=== PATIENT | female | born 1995 | race Caucasian/White ===

== ENCOUNTER 2022-02-04 14:31 | Inpatient (IN) | payer OTHER, SELFPAY ==
--- NOTE | ~2022-02-04 | CT_ITS ---
EXAMINATION: CT ABDOMEN AND PELVIS WITHOUT CONTRAST CLINICAL INFORMATION: Bilateral flank pain and difficulty voiding. COMPARISON: No similar priors. TECHNIQUE: Multidetector volumetric imaging was performed from the superior aspect of the liver through the pubic symphysis. Sagittal and coronal reformatted images were obtained on the technologist's workstation. This CT examination was performed using dose optimization techniques as appropriate, variously including the following: *Automated exposure control. *Adjustment of mA and/or kV according to patient size (this includes techniques or standardized protocols for targeted exams where dose is matched to indication/reason for exam; i.e. extremities or head). *Use of iterative reconstruction technique. DLP: 606 mGy-cm FINDINGS: LUNG BASES: The visualized lung bases are unremarkable. LIVER, GALLBLADDER, AND BILIARY TREE: Hepatic steatosis. The liver is otherwise normal in size and shape without discrete focal abnormalities except for a peripherally located calcification in the right hepatic lobe (3:10). There is no biliary duct dilatation. There is a normal appearance of the gallbladder. PANCREAS: Unremarkable. SPLEEN: Unremarkable. ADRENAL GLANDS: Unremarkable. KIDNEYS AND URETERS: There are at least 6 renal calculi in the right kidney, largest being a group of 2 closely apposed calculi in the lower pole measuring up to 0.3 cm (5:54) and a 0.3 cm calculus in the upper pole (5:55). No left nephrolithiasis. No hydronephrosis or hydroureter. No perinephric fat stranding. BLADDER: Unremarkable. GASTROINTESTINAL TRACT: There is a significantly dilated appendix measuring up to approximately 1.7 cm in maximum diameter with at least 2 subcentimeter calcified fecaliths and significant surrounding fat stranding. In close proximity to this abnormal appendix, there is a rounded water density structure measuring 4.8 x 4.7 cm (3:69) which appears to be in relation to the right ovary and likely represents an ovarian cyst. No free air is identified. The stomach and the small bowel are nondilated. No pericolonic inflammatory changes or evidence of bowel obstruction. ABDOMINAL WALL: No significant hernia is appreciated. LYMPH NODES: Enlarged right lower quadrant mesenteric lymph nodes, likely reactive in the setting of appendicitis. VASCULAR: Abdominal aorta is of normal diameter. PELVIC VISCERA: As above, there is a large up to 4.8 cm water density cyst in the right ovary, almost certainly benign. OSSEOUS STRUCTURES: No acute or aggressive-appearing osseous abnormalities. CT/CT abdomen pelvis wo con IMPRESSION: 1. Markedly distended appendix with appendicoliths and significant regional fat stranding, most consistent with acute appendicitis. Given the degree of inflammatory changes and free fluid an early contained rupture is difficult to be entirely excluded. However, no free air is identified. 2. Hepatic steatosis. 3. Non-obstructive right-sided renal calculi.
[2022-02-04 14:49] VITALS: BP 142/85; PULSE 100; RESP 18; TEMP 36.9; O2SAT 100; BMI 32.7
[2022-02-04 16:40] LABS: Anion Gap 15 (12-20); Blood Urea Nitrogen 7 mg/dL (9-16); Calcium 9.4 mg/dL (8.4-10.2); Carbon Dioxide 20 mmol/L (22-29); Chloride 106 mmol/L (96-108); Creatinine Clr Calc Pharmacy 132.6; Estimated Glomerular Filt Rate > 60; Glucose Random 76 mg/dL (60-115); Potassium 3.9 mmol/L (3.3-5.1); Sodium 137 mmol/L (135-145)
[2022-02-04 16:46] LABS: Appearance Urine CLEAR; Color Urine YELLOW; Glucose Urine UA NEG (NEG); Leukocyte Esterase Urine NEG (NEG); Nitrite Urine NEG (NEG); PH 6.5 (5.0-8.0); UACC Culture Trigger NO; Urine Blood TRACE (NEG); Urine Ketones NEG (NEG); Urine Protein NEG (NEG-TRACE)
[2022-02-04 16:48] LABS: UPreg QC Valid YES; Urine Pregnancy NEGATIVE (NEGATIVE)
[2022-02-04 16:54] LABS: Bacteria Urine TRACE /LPF; RBC Urine 0-2 /HPF (0); Squamous Epithelial Cell Urine 1+ /LPF; WBC Urine 0 /HPF (0-4)
--- NOTE | 2022-02-04 18:30 | ED.FEMALEGU ---
HPI - Female Genitourinary General Chief complaint: Urogenital-Female Stated complaint: Back pain/Trouble urinating Time Seen by Provider: 02/04/22 15:03 Source: patient Mode of arrival: ambulatory Limitations: no limitations History of Present Illness HPI Narrative: c/o low abdominal pain/back pain and dysuria MD elicited complaint: other (abdominal pain back pain dysuria) Pertinent past history: other (prior UTI) Onset (ago): day(s) (yesterday AM) Location of symptoms: low back and other (lower abdomen) Severity: moderate Consistency: constant Vaginal discharge: none Vaginal bleeding: none Urinary symptoms: Dysuria Exacerbating factors: none Relieving factors: none Associated symptoms: abdominal pain Treatment prior to arrival: none Related Data Home Medications Medication Instructions Recorded Confirmed No Known Home Meds 02/04/22 02/04/22 Allergies Allergy/AdvReac Type Severity Reaction Status Date / Time No Known Allergies Allergy Unverified 08/06/20 18:47 Review of Systems Review of Systems: Constitutional : No Weight loss, No Fever, No Chills ENT/Mouth : No sore throat, No Rhinorrhea Eyes: No Swelling, No Redness Cardiovascular : No Chest Pain, No SOB, NoEdema Respiratory : No Cough, No Sputum, No Wheezing Gastrointestinal : no Nausea, no Vomiting, no Diarrhea, positive abdominal Pain, No Hematochezia, No Melena Genitourinary : pos Dysuria, No Urinary Frequency, No Hematuria, No Urgency Musculoskeletal : No joint pain, No Myalgias, No Joint Swelling Skin : No Skin Lesions, No rash Neuro : No Weakness, No Numbness, No Dizziness, No Headache Psych : No Anxiety/Panic, No Depression Heme/Lymph: No Bruising, No Lymphadenopathy Endocrine : No Polyuria, No Polydipsia All other systems reviewed and are negative. [facility] Past Medical History Medical History UTI (urinary tract infection) Social History Social History (Updated 02/04/22 @ 19:24 by Melissa Hoyt DO) Patient Tobacco Use Status: Never used Tobacco Advance Directives: No Advance Directives Information Provided: No Physical Exam Vital Signs: Vital Signs: Last Vital Signs Temp 98.6 F 02/04/22 19:14 Pulse 96 02/04/22 20:35 Resp 14 02/04/22 20:35 BP 106/66 02/04/22 20:35 Pulse Ox 100 02/04/22 20:35 BMI result Body Mass Index 32.7 Appearance: Alert. Oriented X3. anxious mild acute distress. Eyes: Pupils equal, round and reactive to light. ENT: Pharynx normal. Neck: Normal inspection. Neck supple. CVS: Normal heart rate and rhythm. Pulses normal. Respiratory: No respiratory distress. Breath sounds normal. Abdomen: Soft but moderate ttp in RLQ with no rebound but + guarding, no CVA ttp Skin: Skin warm and dry. Normal skin color. Normal skin turgor. Extremities: No lower extremity edema. No calf ttp Neuro: Oriented X 3. No motor deficit. No sensory deficit. Course Course Course Narrative: WBC count 18k, CT scan dilated appendix with appendicolith and stranding, IV zosyn ordered, at this time infection suspected 801pm will notify surgery message sent to Dr. Krishna 808pm - plan to admit the patient overnight and surgery in AM MDM - Female Genitourinary MDM Narrative Medical decision making narrative: 27 yo female with no sig PMH other than occasional UTIs comes in with low abdominal pain back pain and dysuria thought she had a UTI - has normal UA and her exam is quite positive for RLQ ttp ?appendicitis. CT scan ordered, IVF, labs, IV toradol for pain. Dispo per results and findings. Differential Diagnosis Differential diagnosis: Likely urinary tract infection Lab Data Result diagrams: 02/04/22 19:45 02/04/22 16:19 Labs: Lab Results 02/04/22 02/04/22 02/04/22 Range/Units 16:19 16:28 16:28 WBC (4.8-10.8) X10*3/uL RBC (4.20-5.50) X10*6/uL Hgb (12.0-16.0) g/dl Hct (37.0-47.0) % MCV (80.0-98.0) fL MCH (27.0-33.0) pg MCHC (31.0-35.0) g/dl RDW (11.0-16.0) % Plt Count MPV (9.4-12.3) fL Immature Gran % (Auto) (0.0-0.4) % Neut % (Auto) (45-73) % Lymph % (Auto) (20-40) % [place] % (Auto) (2-11) % Eos % (Auto) (0-4) % Baso % (Auto) (0-2) % Lymph # (Auto) (1.2-4.9) X10*3/uL [place] # (Auto) (0.1-1.2) X10*3/uL Eos # (Auto) (0.0-0.4) X10*3/uL Baso # (Auto) (0.0-0.2) X10*3/uL Abs Immat Gran (auto) (0.00-0.03) X10*3/uL Absolute Neuts (auto) (2.0-8.3) x10*3/uL Absolute Nucleated RBC (0.0-0.012) X10*3/uL Nucleated RBC % (auto) (0.0-0.2) /100WBC Smear Tech's Comments PT (9.9-13.0) SEC INR (0.9-1.1) Sodium 137 (135-145) mmol/L Potassium 3.9 (3.3-5.1) mmol/L Chloride 106 (96-108) mmol/L Carbon Dioxide 20 L (22-29) mmol/L Anion Gap 15 (12-20) BUN 7 L (9-16) mg/dL Creatinine 0.69 (0.5-1.4) mg/dL Estim Creat Clear Calc 132.6 Estimated GFR > 60 Random Glucose 76 (60-115) mg/dL Lactic Acid (0.5-2.0) mmol/L Calcium 9.4 (8.4-10.2) mg/dL Urine Color YELLOW Urine Appearance CLEAR Urine pH 6.5 (5.0-8.0) Ur Specific [place] 1.010 (1.005-1.025) Urine Protein NEG (NEG-TRACE) MG/DL Urine Glucose (UA) NEG (NEG) MG/DL Urine Ketones NEG (NEG) MG/DL Urine Blood TRACE (NEG) Urine Nitrite NEG (NEG) Ur Leukocyte Esterase NEG (NEG) Urine RBC 0-2 (0) /HPF Urine WBC 0 (0-4) /HPF Ur Squamous Epith Cells 1+ /LPF Urine Bacteria TRACE /LPF Urine Test NEGATIVE (NEGATIVE) COVID-19 (JOEY) (Negative) COVID-19 Clin Com 02/04/22 02/04/22 02/04/22 Range/Units 19:35 19:45 20:18 WBC 18.1 H (4.8-10.8) X10*3/uL RBC 4.22 (4.20-5.50) X10*6/uL Hgb 13.0 (12.0-16.0) g/dl Hct 39.2 (37.0-47.0) % MCV 92.9 (80.0-98.0) fL MCH 30.8 (27.0-33.0) pg MCHC 33.2 (31.0-35.0) g/dl RDW 12.3 (11.0-16.0) % Plt Count TNP MPV 12.3 (9.4-12.3) fL Immature Gran % (Auto) 0.3 (0.0-0.4) % Neut % (Auto) 80.7 H (45-73) % Lymph % (Auto) 13.0 L (20-40) % [place] % (Auto) 5.2 (2-11) % Eos % (Auto) 0.5 (0-4) % Baso % (Auto) 0.3 (0-2) % Lymph # (Auto) 2.4 (1.2-4.9) X10*3/uL [place] # (Auto) 1.0 (0.1-1.2) X10*3/uL Eos # (Auto) 0.1 (0.0-0.4) X10*3/uL Baso # (Auto) 0.1 (0.0-0.2) X10*3/uL Abs Immat Gran (auto) 0.05 H (0.00-0.03) X10*3/uL Absolute Neuts (auto) 14.6 H (2.0-8.3) x10*3/uL Absolute Nucleated RBC 0.000 (0.0-0.012) X10*3/uL Nucleated RBC % (auto) 0.0 (0.0-0.2) /100WBC Smear Tech's Comments VERIFIED PT 12.0 (9.9-13.0) SEC INR 1.1 (0.9-1.1) Sodium (135-145) mmol/L Potassium (3.3-5.1) mmol/L Chloride (96-108) mmol/L Carbon Dioxide (22-29) mmol/L Anion Gap (12-20) BUN (9-16) mg/dL Creatinine (0.5-1.4) mg/dL Estim Creat Clear Calc Estimated GFR Random Glucose (60-115) mg/dL Lactic Acid (0.5-2.0) mmol/L Calcium (8.4-10.2) mg/dL Urine Color Urine Appearance Urine pH (5.0-8.0) Ur Specific [place] (1.005-1.025) Urine Protein (NEG-TRACE) MG/DL Urine Glucose (UA) (NEG) MG/DL Urine Ketones (NEG) MG/DL Urine Blood (NEG) Urine Nitrite (NEG) Ur Leukocyte Esterase (NEG) Urine RBC (0) /HPF Urine WBC (0-4) /HPF Ur Squamous Epith Cells /LPF Urine Bacteria /LPF Urine Test (NEGATIVE) COVID-19 (JOEY) Negative (Negative) COVID-19 Clin Com See Note 02/04/22 Range/Units 20:18 WBC (4.8-10.8) X10*3/uL RBC (4.20-5.50) X10*6/uL Hgb (12.0-16.0) g/dl Hct (37.0-47.0) % MCV (80.0-98.0) fL MCH (27.0-33.0) pg MCHC (31.0-35.0) g/dl RDW (11.0-16.0) % Plt Count MPV (9.4-12.3) fL Immature Gran % (Auto) (0.0-0.4) % Neut % (Auto) (45-73) % Lymph % (Auto) (20-40) % [place] % (Auto) (2-11) % Eos % (Auto) (0-4) % Baso % (Auto) (0-2) % Lymph # (Auto) (1.2-4.9) X10*3/uL [place] # (Auto) (0.1-1.2) X10*3/uL Eos # (Auto) (0.0-0.4) X10*3/uL Baso # (Auto) (0.0-0.2) X10*3/uL Abs Immat Gran (auto) (0.00-0.03) X10*3/uL Absolute Neuts (auto) (2.0-8.3) x10*3/uL Absolute Nucleated RBC (0.0-0.012) X10*3/uL Nucleated RBC % (auto) (0.0-0.2) /100WBC Smear Tech's Comments PT (9.9-13.0) SEC INR (0.9-1.1) Sodium (135-145) mmol/L Potassium (3.3-5.1) mmol/L Chloride (96-108) mmol/L Carbon Dioxide (22-29) mmol/L Anion Gap (12-20) BUN (9-16) mg/dL Creatinine (0.5-1.4) mg/dL Estim Creat Clear Calc Estimated GFR Random Glucose (60-115) mg/dL Lactic Acid 0.9 (0.5-2.0) mmol/L Calcium (8.4-10.2) mg/dL Urine Color Urine Appearance Urine pH (5.0-8.0) Ur Specific [place] (1.005-1.025) Urine Protein (NEG-TRACE) MG/DL Urine Glucose (UA) (NEG) MG/DL Urine Ketones (NEG) MG/DL Urine Blood (NEG) Urine Nitrite (NEG) Ur Leukocyte Esterase (NEG) Urine RBC (0) /HPF Urine WBC (0-4) /HPF Ur Squamous Epith Cells /LPF Urine Bacteria /LPF Urine Test (NEGATIVE) COVID-19 (JOEY) (Negative) COVID-19 Clin Com Procedures EJ/Peripheral Line Arm R: Time Out Performed: Yes Skin Cleansed in Sterile Fashion: Yes Size (gauge): 20 IV Secured and Dressing Applied: Yes Patient Tolerated Procedure: well and no complications Critical Care Time Critical Care Time Critical Care Time: Yes Total Critical Care Time: 35 Attestation: IVF x 2L, medical consult, admission I attest to this time spent taking care of the patient Discharge Plan Discharge Clinical Impression: Leukocytosis Abdominal pain Qualifiers: Abdominal location: right lower quadrant Qualified Code(s): R10.31 - Right lower quadrant pain Acute appendicitis Qualifiers: Acute appendicitis type: unspecified acute appendicitis type Qualified Code(s): K35.80 - Unspecified acute appendicitis Patient Disposition: Admitted As Inpatient
[2022-02-04 19:14] VITALS: BP 103/62; PULSE 90; RESP 20; TEMP 37; O2SAT 100
[2022-02-04 19:51] LABS: Basophils Percent Auto 0.3 % (0-2); MANUAL DIFF FLAG SCAN; Mean Corpuscular HGB Conc 33.2 g/dl (31.0-35.0); PLT CLUMP 1; SCAN SMEAR FLAG 1
[2022-02-04 19:52] LABS: Basophils Absolute Auto 0.1 X10*3/uL (0.0-0.2); Eosinophils Absolute Auto 0.1 X10*3/uL (0.0-0.4); Eosinophils Percent Auto 0.5 % (0-4); Hematocrit 39.2 % (37.0-47.0); Imm Gran Abs Auto 0.05 X10*3/uL (0.00-0.03); Imm Gran Pct Auto 0.3 % (0.0-0.4); Lymphocytes Absolute Auto 2.4 X10*3/uL (1.2-4.9); Mean Corpuscular Hemoglobin 30.8 pg (27.0-33.0); Mean Corpuscular Volume 92.9 fL (80.0-98.0); Mean Platelet Volume 12.3 fL (9.4-12.3); Monocytes Percent Auto 5.2 % (2-11); Neutrophils Absolute Auto 14.6 x10*3/uL (2.0-8.3); Neutrophils Percent Auto 80.7 % (45-73); Red Blood Count 4.22 X10*6/uL (4.20-5.50); Red Cell Distribution Width 12.3 % (11.0-16.0)
[2022-02-04 19:56] LABS: White Blood Count 18.1 X10*3/uL (4.8-10.8)
[2022-02-04 20:10] LABS: COVID-19 Test Negative (Negative); IDNOW Serial# 55D5AD1C
[2022-02-04 20:15] LABS: SLIDE REVIEW VERIFIED
[2022-02-04] MEDS: Ketorolac Tromethamine 30 MG/ML VIAL IVPUSH (20:18)
[2022-02-04] MEDS: ondansetron HCL 4 MG/2 ML VIAL IVPUSH (20:21)
[2022-02-04] MEDS: 0.9 % Sodium Chloride 1,000 ML 999 ML IV ×2 (20:21→20:32)
[2022-02-04 20:29] VITALS: RESP 18
[2022-02-04] MEDS: Morphine Sulfate 4 MG/ML CARTRIDGE IVPUSH (20:29)
[2022-02-04] MEDS: Piperacillin Sodium/Tazobactam 3.375 GM in 0.9 % Sodium Chloride 50 ML IV (20:30)
[2022-02-04 20:31] LABS: INTERNATIONAL NORM RATIO 1.1 (0.9-1.1)
[2022-02-04 20:35] VITALS: BP 106/66; PULSE 96; RESP 14; O2SAT 100
[2022-02-04 20:35] LABS: Lactic Acid 0.9 mmol/L (0.5-2.0)
--- NOTE | 2022-02-04 20:53 | PHA.MEDREC ---
Pharmacy Consult ? Medication Reconciliation Pharmacy has completed the medication reconciliation.
[2022-02-04] MEDS: 0.9 % Sodium Chloride 1,000 ML 125 ML IVCONT (22:31)
[2022-02-05] VITALS (26 sets, daily range): BP systolic 83–117; BP diastolic 33–64; PULSE 68–103; RESP 15–20; TEMP 36.1–36.9; O2SAT 92–100
[2022-02-05] MEDS: Piperacillin Sodium/Tazobactam 3.375 GM in 0.9 % Sodium Chloride 50 ML IV ×4 (01:35→21:23)
[2022-02-05] MEDS: Ketorolac Tromethamine 30 MG/ML VIAL IVPUSH (04:47)
[2022-02-05] MEDS: 0.9 % Sodium Chloride 1,000 ML 125 ML IVCONT ×2 (07:42→23:50)
--- NOTE | 2022-02-05 08:09 | PM.HPGS ---
History of Present Illness History of Present Illness Date of Service: 02/05/22 Chief complaint: Appendicitis Narrative: Chato Mccullough is a 27 year old female who has had a 24 hr history of generalized abdominal pain that then went down to right side. no nausea or vomiting and pain worsened so came to the ER. saldana revealed elevated wbc and ct scan showing appendicitis and right ovarian cyst. Review of Systems Review of Systems: Yes all other systems are reviewed and are negative PMFSH Past Medical History Medical History UTI (urinary tract infection) Social History Social History Household Members: Spouse and Family Housing: Apartment Do you presently have visiting nurse or other home services: No Patient Tobacco Use Status: Never used Tobacco Use of substances other than those prescribed or required for medical reasons: No Have you been hit, kicked, punched, or otherwise hurt by someone within the past year? If so, by whom?: No Do you feel safe in your current relationship?: No Is there a partner from a previous relationship who is making you feel unsafe now?: No Are you made to feel afraid or neglected: No Advance Directives: No Advance Directives Information Provided: No Do you have thoughts of harming others: None Do you have a plan to hurt others: No Plan Patient : No : No Poor oral hygiene: No Meds Allergies Allergy/AdvReac Type Severity Reaction Status Date / Time No Known Allergies Allergy Unverified 08/06/20 18:47 Active Medications: Current Medications Piperacillin Sod/Tazobactam (Sod 3.375 gm/ Sodium Chloride) 50 mls @ 100 mls/hr IV Q6H [facility] Last Admin: 02/05/22 07:39 Dose: 100 mls/hr Documented by: Sodium Chloride (Ns) 1,000 mls @ 125 mls/hr IVCONT .Q8H [facility] Last Admin: 02/05/22 07:42 Dose: 125 mls/hr Documented by: Ketorolac Tromethamine (Ketorolac Tromethamine 30 Mg/Ml Vial) 30 mg IVPUSH QID PRN PRN Reason: Pain, Severe (Pain Scale 7-10) Last Admin: 02/05/22 04:47 Dose: 30 mg Documented by: Sodium Chloride (0.9 % Sodium Chloride Flush 3 Ml Syringe) 3 ml IVFLUSH QSHIFT [facility] Last Admin: 02/05/22 07:44 Dose: Not Given Documented by: Home Medications Medication Instructions Recorded Confirmed Last Taken Type No Known Home Meds 02/04/22 02/04/22 Unknown History Physical Exam Vital Signs: Vital Signs: Last Vital Signs Temp 97.9 F 02/05/22 07:42 Pulse 80 02/05/22 07:42 Resp 20 02/05/22 07:42 BP 87/50 L 02/05/22 07:42 Pulse Ox 95 02/05/22 07:42 BMI result Body Mass Index 32.7 Const: General: cooperative, healthy appearing, comfortable and acute distress mild HENMT: Head: Yes normal to inspection Resp: Effort & Inspection: normal respiratory effort and able to speak in complete sentences Auscultation: clear to auscultation bilaterally Cardio: Rate: regular rate Rhythm: regular rhythm Heart sounds: S1 normal heart sound present and S2 normal heart sound present GI: Inspection: Yes normal to inspection Palpation (GI): Soft to palpation and Tenderness to palpation present (GI) (tender right side [id number], with guarding no rebound or peritonitis) Auscultation: normal bowel sounds Skin: Lesions: no lesions Rashes: no rashes Extrem: General: Yes normal to inspection Results Results Labs: Short CBC 02/04/22 Range/Units 19:45 WBC 18.1 H (4.8-10.8) X10*3/uL Hgb 13.0 (12.0-16.0) g/dl Hct 39.2 (37.0-47.0) % Plt Count TNP BMP 02/04/22 16:19 Sodium 137 Potassium 3.9 Chloride 106 Carbon Dioxide 20 L BUN 7 L Creatinine 0.69 Calcium 9.4 Urine 02/04/22 02/04/22 Range/Units 16:28 16:28 Urine Color YELLOW Urine Appearance CLEAR Urine pH 6.5 (5.0-8.0) Ur Specific [place] 1.010 (1.005-1.025) Urine Protein NEG (NEG-TRACE) MG/DL Urine Glucose (UA) NEG (NEG) MG/DL Urine Test NEGATIVE (NEGATIVE) Abdomen CT scan report/results: report reviewed and image reviewed CT scan - pelvis: report reviewed and image reviewed Assessment and Plan (1) Acute appendicitis: Qualifiers: Acute appendicitis type: unspecified acute appendicitis type Qualified Code(s): K35.80 - Unspecified acute appendicitis Status: Acute Plan 27 year old female with rlq pain and elevated wbc and ct scan and exam consistent with acute appendicitis - plan admit, npo, ivf, iv antibx and undergo lap appy. risks and benefits discussed with the pt including but not limited to bleeding infection open procedure bowel injury. she agrees to proceed. on ct scan she also has an ovarian cyst but i dont think this is the cause of her issue right now. she is aware of cysts in the past but this feels different. Quality Stroke Does the patient have a stroke diagnosis?: No VTE Prior VTE?: No VTE Risk Level:: Surgical - low VTE Device Contraindication: N/A - Device Ordered VTE Drug Contraindication: Treatment Not Indicated Procedures Date of Service Date of Service: 02/05/22
--- NOTE | 2022-02-05 08:15 | P.CONAN_ITS ---
[facility] Active Problems Active Problems: All Active Problems (Updated 02/04/22 @ 20:02 by Melissa Hoyt DO) Leukocytosis (Acute) Abdominal pain (Acute) Acute appendicitis (Acute) Past Medical History Medical History UTI (urinary tract infection) Functional capacity: independent ambulation Patient : No Family History Family history of problems with anesthesia: No Surgical History History of Problems with Anesthesia: No Social History Social History Household Members: Spouse and Family Housing: Apartment Do you presently have visiting nurse or other home services: No Patient Tobacco Use Status: Never used Tobacco Use of substances other than those prescribed or required for medical reasons: No Have you been hit, kicked, punched, or otherwise hurt by someone within the past year? If so, by whom?: No Do you feel safe in your current relationship?: No Is there a partner from a previous relationship who is making you feel unsafe now?: No Are you made to feel afraid or neglected: No Advance Directives: No Advance Directives Information Provided: No Do you have thoughts of harming others: None Do you have a plan to hurt others: No Plan Patient : No : No Poor oral hygiene: No Meds Allergies Allergy/AdvReac Type Severity Reaction Status Date / Time No Known Allergies Allergy Unverified 08/06/20 18:47 Active Medications: Current Medications Piperacillin Sod/Tazobactam (Sod 3.375 gm/ Sodium Chloride) 50 mls @ 100 mls/hr IV Q6H [facility] Last Admin: 02/05/22 07:39 Dose: 100 mls/hr Documented by: Sodium Chloride (Ns) 1,000 mls @ 125 mls/hr IVCONT .Q8H [facility] Last Admin: 02/05/22 07:42 Dose: 125 mls/hr Documented by: Ketorolac Tromethamine (Ketorolac Tromethamine 30 Mg/Ml Vial) 30 mg IVPUSH QID PRN PRN Reason: Pain, Severe (Pain Scale 7-10) Last Admin: 02/05/22 04:47 Dose: 30 mg Documented by: Sodium Chloride (0.9 % Sodium Chloride Flush 3 Ml Syringe) 3 ml IVFLUSH QSHIFT [facility] Last Admin: 02/05/22 07:44 Dose: Not Given Documented by: Home Medications Medication Instructions Recorded Confirmed Last Taken Type No Known Home Meds 02/04/22 02/04/22 Unknown History Exam Exam Date and Time: February 05, 2022 0815 Height,Weight and Vital Signs: Height 5 ft 4 in Weight 86.5 kg Last Vital Signs Temp 97.9 F 02/05/22 07:42 Pulse 80 02/05/22 07:42 Resp 20 02/05/22 07:42 BP 87/50 L 02/05/22 07:42 Pulse Ox 95 02/05/22 07:42 Pertinent Lab Results Pertinent Lab Results: Laboratory Tests 02/04/22 02/04/22 02/04/22 16:19 16:28 16:28 WBC RBC Hgb Hct MCV MCH MCHC RDW Plt Count MPV Immature Gran % (Auto) Neut % (Auto) Lymph % (Auto) [place] % (Auto) Eos % (Auto) Baso % (Auto) Lymph # (Auto) [place] # (Auto) Eos # (Auto) Baso # (Auto) Abs Immat Gran (auto) Absolute Neuts (auto) Absolute Nucleated RBC Nucleated RBC % (auto) Smear Tech's Comments PT INR Sodium 137 Potassium 3.9 Chloride 106 Carbon Dioxide 20 L Anion Gap 15 BUN 7 L Creatinine 0.69 Estim Creat Clear Calc 132.6 Estimated GFR > 60 Random Glucose 76 Lactic Acid Calcium 9.4 Urine Color YELLOW Urine Appearance CLEAR Urine pH 6.5 Ur Specific [place] 1.010 Urine Protein NEG Urine Glucose (UA) NEG Urine Ketones NEG Urine Blood TRACE Urine Nitrite NEG Ur Leukocyte Esterase NEG Urine RBC 0-2 Urine WBC 0 Ur Squamous Epith Cells 1+ Urine Bacteria TRACE Urine Test NEGATIVE COVID-19 ([facility]EY) COVID-19 Clin Com 02/04/22 02/04/22 02/04/22 19:35 19:45 20:18 WBC 18.1 H RBC 4.22 Hgb 13.0 Hct 39.2 MCV 92.9 MCH 30.8 MCHC 33.2 RDW 12.3 Plt Count TNP MPV 12.3 Immature Gran % (Auto) 0.3 Neut % (Auto) 80.7 H Lymph % (Auto) 13.0 L [place] % (Auto) 5.2 Eos % (Auto) 0.5 Baso % (Auto) 0.3 Lymph # (Auto) 2.4 [place] # (Auto) 1.0 Eos # (Auto) 0.1 Baso # (Auto) 0.1 Abs Immat Gran (auto) 0.05 H Absolute Neuts (auto) 14.6 H Absolute Nucleated RBC 0.000 Nucleated RBC % (auto) 0.0 Smear Tech's Comments VERIFIED PT 12.0 INR 1.1 Sodium Potassium Chloride Carbon Dioxide Anion Gap BUN Creatinine Estim Creat Clear Calc Estimated GFR Random Glucose Lactic Acid Calcium Urine Color Urine Appearance Urine pH Ur Specific [place] Urine Protein Urine Glucose (UA) Urine Ketones Urine Blood Urine Nitrite Ur Leukocyte Esterase Urine RBC Urine WBC Ur Squamous Epith Cells Urine Bacteria Urine Test COVID-19 (JOEY) Negative COVID-19 Clin Com See Note 02/04/22 20:18 WBC RBC Hgb Hct MCV MCH MCHC RDW Plt Count MPV Immature Gran % (Auto) Neut % (Auto) Lymph % (Auto) [place] % (Auto) Eos % (Auto) Baso % (Auto) Lymph # (Auto) [place] # (Auto) Eos # (Auto) Baso # (Auto) Abs Immat Gran (auto) Absolute Neuts (auto) Absolute Nucleated RBC Nucleated RBC % (auto) Smear Tech's Comments PT INR Sodium Potassium Chloride Carbon Dioxide Anion Gap BUN Creatinine Estim Creat Clear Calc Estimated GFR Random Glucose Lactic Acid 0.9 Calcium Urine Color Urine Appearance Urine pH Ur Specific [place] Urine Protein Urine Glucose (UA) Urine Ketones Urine Blood Urine Nitrite Ur Leukocyte Esterase Urine RBC Urine WBC Ur Squamous Epith Cells Urine Bacteria Urine Test COVID-19 (JOEY) COVID-19 Clin Com Airway Mallampati Class: II TM Dist: >3cm Neck ROM: Full Heart: RRR Lungs: CTA Assessment and Plan Final Anesthetic Review Family History of Problems with Anesthesia: No History of Problems with Anesthesia: No ASA Class: I and Emergency Final Preanesthetic Review: Meds/Allgs Chart Reviewed, Consent Obtained/Reviewed and Anes Risks/Benef Reviewed Patient Risk: Low Procedure Risk: Low Anesthetic Plan Anesthetic Plan: GA Disposition: Standard PACU
--- NOTE | 2022-02-05 09:39 | MHC.CM.PN ---
CM ATTEMPTED TO MEET PT WHO WAS OFF UNIT CM TO REVISIT
[2022-02-05] MEDS: ondansetron HCL 4 MG/2 ML VIAL IVPUSH ×2 (10:25→16:52)
[2022-02-05] MEDS: fentaNYL citrate/PF 100 MCG/2 ML VIAL 25 MCG IVPUSH ×4 (10:27→10:51)
[2022-02-05] MEDS: oxyCODONE HCl Immed Release 5 MG TABLET 10 MG PO ×2 (10:45→23:52)
--- NOTE | 2022-02-05 12:16 | HE.PHANOTE ---
Zosyn <48h of therapy, continue zosyn for now
--- NOTE | 2022-02-05 15:58 | HO.POSTANES ---
Post Anesthesia Evaluation Post Anesthesia Evaluation Vital Signs: Vital Signs Temp Pulse Resp BP Pulse Ox 02/05/22 15:32 97.8 F 74 18 96/51 L 98 02/05/22 11:41 97.2 F 79 20 117/64 100 02/05/22 10:59 97.0 F 68 16 96/50 L 100 02/05/22 10:55 85 16 94/48 L 97 02/05/22 10:51 19 02/05/22 10:48 88 16 98/58 L 95 02/05/22 10:44 70 101/48 L 98 02/05/22 10:39 17 02/05/22 10:38 103 H 16 98/47 L 100 02/05/22 10:36 76 16 83/33 L 92 02/05/22 10:35 87 16 98 02/05/22 10:31 73 18 98/47 L 100 02/05/22 10:28 81 16 100/58 L 100 02/05/22 10:27 18 02/05/22 10:23 97.7 F 103 H 16 102/47 L 100 02/05/22 07:42 97.9 F 80 20 87/50 L 95 02/05/22 03:59 98.1 F 81 15 90/51 L 98 Anesthesia: General Endotracheal-GETA Mental Status: Awake Pain Control: Satisfactory Nausea/Vomiting: None Hydration: Adequate Anesthesia-Related Issues: No Anes. Related Issues
[2022-02-05] MEDS: oxyCODONE HCl Immed Release 5 MG TABLET PO (16:52)
[2022-02-06] VITALS: BP 98/48; PULSE 74; RESP 18; TEMP 36.7; O2SAT 94
[2022-02-06] MEDS: Piperacillin Sodium/Tazobactam 3.375 GM in 0.9 % Sodium Chloride 50 ML IV ×3 (02:49→12:38)
[2022-02-06 04:00] VITALS: RESP 18
[2022-02-06 08:00] VITALS: BP 97/56; PULSE 73; RESP 18; TEMP 37; O2SAT 96
[2022-02-06 08:17] VITALS: O2SAT 98
[2022-02-06 08:19] VITALS: O2SAT 98
[2022-02-06] MEDS: oxyCODONE HCl Immed Release 5 MG TABLET 10 MG PO (09:23)
[2022-02-06] MEDS: 0.9 % Sodium Chloride 1,000 ML 125 ML IVCONT (09:31)
--- NOTE | 2022-02-06 09:55 | MHC.CM.PN ---
PT REPORTS SHE LIVES WITH FAMILY AND IS INDEPENDENT WITH CARE PT DENIES USE OF DME OR HOME SERVICES PT REPORTS SHE DOES NOT HAVE A PCP AT THIS TIME, SHE IS AGREEABLE TO A NEW PT APPT BEING MADE BY [facility] TASK SENT WITH REQUEST FOR NEW PCP APPT OF NOTE, PT REPORTS SHE NOW LIVES IN [place] AND WOULD LIKE A PCP [place] PT REPORTS SHE IS VACCINATED AGAINST COVID-19 WITH PFIZER X 2 CURRENT DC PLAN IS HOME WITH NO SERVICES FAMILY TO TRANSPORT
[2022-02-06 11:46] VITALS: BP 114/70; PULSE 68; RESP 18; TEMP 37.1; O2SAT 96
[2022-02-06] MEDS: Ketorolac Tromethamine 30 MG/ML VIAL IVPUSH (12:38)
--- NOTE | 2022-02-06 13:23 | HE.PHANOTE ---
Zosyn <48h of therapy, continue for now
--- NOTE | 2022-02-06 15:05 | PM.DS ---
DS: Providers Provider Date of Service: 02/06/22 Date of admission: 02/04/22 20:52 Date of discharge: 02/06/22 Primary care physician: Anurag Physician Admitting clinician: Johanna Krishna Attending physician on admission: Johanna Krishna Attending physician on discharge: Johanna Krishna DS: Diagnosis Discharge Diagnosis (1) Acute appendicitis: Start date: 02/04/22 Status: Acute DS: Summary Hospital Course Hospital Course: 27 year old female presented with acute appendicits - underwent lap appy and did well. dc home on po augmentin and percocet and plan to f.u in office in 1 week. no work and no lifting greater than 7 lbs until then . she understands and agrees with plan Status at Discharge Functional status at discharge: independent ambulation Overall status at discharge: patient is progressing back to baseline Time Spent with Patient Time attestation: Total time spent providing and/or coordinating discharge services: Discharge coordination time: Less than 30 minutes Quality: Stroke Does the patient have a stroke diagnosis?: No Reason for No Anti-thrombotic at DC: Not indicated Reason for No Anticoagulant at DC: Not indicated Reason Not Initiating IV-Tpa: Not indicated Reason for No Anti-thrombotic by Day Two: Not indicated Reason for No Statin at DC: Not indicated Physical Exam Vital Signs: Vital Signs: Last Vital Signs Temp 98.7 F 02/06/22 11:46 Pulse 68 02/06/22 11:46 Resp 18 02/06/22 11:46 BP 114/70 02/06/22 11:46 Pulse Ox 96 02/06/22 11:46 BMI result Body Mass Index 32.7 GI: Other: abdo soft tender at incision and umbilicus DS: Data Data Completed and Pending Pending studies at discharge: Pending at discharge 02/05/22 10:00 Surgical [PTH] Routine Labs on day of discharge: Preliminary micro results at discharge 02/04/22 20:18 Blood Culture - Preliminary Blood - Venous No growth after 24 hours. 02/04/22 20:18 Blood Culture - Preliminary Blood - Venous No growth after 24 hours. Discharge Plan Discharge Anticipated Discharge Date/Time: 02/06/22 14:54 Patient Disposition: Home, Self-Care Discharge Diagnosis: acute appendicitis Referrals: Physician,None [Primary Care Provider] - 1 Week (Dr Doan or Dr Collins in office ) Johanna Krishna MD [Physician] - 1 Week Discharge Medications: New oxycodone-acetaminophen [Percocet] 5-325 mg tablet 1 tab PO Q4-6H PRN (Reason: pain) Qty: 24 0RF Rx Instructions: 1-2 tabs po q4-6 hrs prn pain and can alternate with ibuprofen docusate sodium [Colace] 100 mg capsule 100 mg PO BID Qty: 20 0RF amoxicillin-pot clavulanate [Augmentin] 500-125 mg tablet 1 tab PO Q12H Qty: 14 0RF Discharge Orders: Discharge Order (Routine); Ordered 02/06/22 Ordered By: Johanna Krishna Diet: advance to usual diet Activity on Discharge: No heavy lifting Stand Alone Forms: Patient Portal Discharge page Care Plan Goals: healing from surgery Health Concerns: none Plan of Treatment: antibx and pain meds postop Assessment: pt s;p lap appy for acute appendicitis doing very well. dc home on po pain meds and antibx
--- NOTE | 2022-02-06 16:01 | MHC.CM.PN ---
PT TO DC HOME TODAY WITH NO SERVICES PT WILL ARRANGE TRANSPORT
--- NOTE | 2022-02-07 13:03 | HO.POSTANES ---
Post Anesthesia Evaluation Post Anesthesia Evaluation Vital Signs: 114/70, 68, 18, 98.7F, vital signs stable Anesthesia: General Endotracheal-GETA Mental Status: Awake Pain Control: Satisfactory Nausea/Vomiting: None Hydration: Adequate Anesthesia-Related Issues: No Anes. Related Issues
--- NOTE | 2022-02-17 04:15 | OP_ITS ---
SURGEON: Johanna Krishna MD INDICATIONS: Patient is a 27-year-old female who presented with right lower quadrant pain, elevated white count. CT scan showing acutely inflamed appendix with fecalith. The patient came to the OR for laparoscopic appendectomy. PREOPERATIVE DIAGNOSIS: Acute appendicitis. POSTOPERATIVE DIAGNOSIS: Acute appendicitis. PROCEDURE PERFORMED: Laparoscopic appendectomy. ESTIMATED BLOOD LOSS: COMPLICATIONS: ANESTHESIA: General endotracheal tube anesthesia. ASSISTANTS: SPECIMENS: FINDINGS: Acute appendix. DESCRIPTION OF PROCEDURE: Patient was brought to the operating room. Under Anesthesia guidance, was intubated. She had compression stockings placed from before and had received preoperative antibiotics. Her abdomen was prepped and draped in standard surgical fashion. An infraumbilical incision was created after numbing up the area with 0.25% Marcaine with epinephrine. Dissection carried down to the anterior abdominal wall fascia, which was grasped with Alfonso and transected. [address] Two 5 mm ports were then placed under direct visualization; in the suprapubic area and left lower quadrant area using lidocaine. Patient was positioned left side down and the intraperitoneal content examined. The appendix was identified in the right lower quadrant area, inflamed, stuck down. The lateral wall of the cecum and the appendix was taken down with the LigaSure and coming across the mesentery down to the base of the appendix. The Endo TERRY stapler was fired across here and the appendix placed in an EndoCatch bag and removed area was suctioned and irrigated with staple line looked fine. The ports were then removed under direct visualization. The pursestring suture approximated and 4-0 Monocryl subcuticular was used to approximate the skin edges with Steri-Strips. At the end of the case, all sponge, instrument, needle counts were correct. Estimated blood loss was minimal. Specimen sent was the appendix. The patient was extubated, returned stable to the recovery room. Johanna Krishna MD SR/ENOC / [id number]
== END 2022-02-06 16:45 | disposition home or self-care (01) | DRG 234 ==
LOC: HO.ED 21:27 → HO.EDOVER 21:37 → HO.S3 23:13
PROVIDERS: Admitting Provider Surgery; Emergency Provider Emergency Medicine; Visit Provider Surgery
PROC: 0DTJ4ZZ Resection of Appendix, Percutaneous Endoscopic Approach (ICD-10-PCS; CPT 44970; principal; 2022-02-05 08:30)
DX: K35.80 Unspecified acute appendicitis (principal); D72.829 Elevated white blood cell count, unspecified; K38.1 Appendicular concretions; Z20.822 Contact with and (suspected) exposure to COVID-19; Z79.899 Other long term (current) drug therapy
CPT/HCPCS: 36410; 44970; 36415; 74176; 80048; 81001; 81025; 83605; 85025; 85610; 87040; 87635; 88304; 96361; 96365; 96375; 99284; 99291; J1100; J1885; J2250; J2270; J2405; J2543; J3010

== ENCOUNTER → 2022-02-16 14:56 | Outpatient (BNVA) | payer OTHER, SELFPAY | PROVIDERS: Visit Provider Surgery | DX: Z48.815 Encounter for surgical aftercare following surgery on the digestive system (principal); Z90.49 Acquired absence of other specified parts of digestive tract | CPT/HCPCS: 99212 ==